=== PATIENT | female | born 1955 | race Caucasian/White ===

== ENCOUNTER 2018-02-21 20:06 | Emergency (ER) | payer MEDICARE ==
[~2018-02-21] VITALS: Ht 142.2 cm; Wt 56.7 kg
[~2018-02-21 20:06] MED LIST: LANTUS SUBQ; TRAM50TA1 PO; VIC PO
[2018-02-21 20:10] VITALS: BP 172/90
--- NOTE | 2018-02-21 20:17 | NUR ---
SENT TO LOBBY TO WAIT FOR A BED.
--- NOTE | 2018-02-21 20:41 | NUR ---
PT TAKEN TO BED 8
--- NOTE | 2018-02-21 20:45 | NUR ---
PT PRESENTED ER WITH C/O LEG PAIN X 4 WEEKS. PT HAS AN OPEN WOUND ON THE OUTER PART OF CALF. PAIN LEVEL IS 9/10 AT THIS TIME. PT HAS HX OF DM, OSTEOPOROSIS AND ANXIETY. PT IS A/O X 4; EVEN AND STEADY GAIT; VSS; PATIENT POSITIONED FOR COMFORT; HOB ELEVATED; BEDRAILS UP X2; BED DOWN. ER MD MADE AWARE OF PT STATUS.
--- NOTE | 2018-02-21 22:59 | NUR ---
Dr. Vickers evaluating patient at bedside.
[2018-02-21] MEDS ORDERED: MORPHINE SULFATE 4 MG/ML SYR IM ONE (23:10)
[2018-02-21] MEDS ORDERED: CLINDAMYCIN 600 MG/4 ML VIAL IM ONE (23:10)
[2018-02-21] MEDS ORDERED: BACITRACIN OINT 500 UNITS/GM PKT TP ONE ×2 (23:45→23:48)
[2018-02-21 23:49] VITALS: BP 172/90
--- NOTE | 2018-02-21 23:49 | NUR ---
Patient discharged with v/s stable. Written and verbal after care instructions given and explained. Patient alert, oriented and verbalized understanding of instructions. Ambulatory with steady gait. All questions addressed prior to discharge. ID band removed. Patient advised to follow up with PMD. Rx of NEURONTIN, CLINDAMYCON, BACTRIM WAS given. Patient educated on indication of medication including possible reaction and side effects. Opportunity to ask questions provided and answered.
== END 2018-02-21 23:49 | disposition home or self-care (01) ==
LOC: MED 20:06
DX: L03.116 Cellulitis of left lower limb (principal); L97.929 Non-pressure chronic ulcer of unspecified part of left lower leg with unspecified severity; E11.9 Type 2 diabetes mellitus without complications; Z88.0 Allergy status to penicillin; Z79.4 Long term (current) use of insulin; Z79.899 Other long term (current) drug therapy; Z90.49 Acquired absence of other specified parts of digestive tract
CPT/HCPCS: 82948; 96372; 99284; J2270; J3490

== ENCOUNTER 2018-02-24 15:19 | Emergency (ER) | payer MEDICARE ==
[~2018-02-24] VITALS: Ht 157.5 cm; Wt 70.3 kg
[2018-02-24 15:21] VITALS: BP 127/62
--- NOTE | 2018-02-24 15:31 | NUR ---
PT PROVIDING URINE AT THIS TIME.
--- NOTE | 2018-02-24 15:35 | NUR ---
PT. BIB SON DUE TO [place] SINCE LAST NIGHTAFTER TAKING MEDICATIONS. PT DENIES SOB, DENIES CP, DENIES N/V/D. 01/26 ITCHY ALL OVER BODY. RR EVEN AND UNLABORED. ABLE TO SPEAK IN FULL AND COMPLETE SENTENCES. URTICARIA NOTED IN BILAT ARMS AND CHEST. ER MD NOTIFIED. WILL CONTINUE TO MONITOR. VSS.
[2018-02-24] MEDS ORDERED: FAMOTIDINE 20 MG TAB PO ONE (16:05)
[2018-02-24] MEDS ORDERED: predniSONE 20 MG TAB PO ONE (16:05)
[2018-02-24] MEDS ORDERED: diphenhydrAMINE 50 MG CAP PO ONE (16:05)
[2018-02-24] MEDS ORDERED: ACETAMINOPHEN EXTRA STRENGTH 500 MG TAB PO ONE (17:00)
--- NOTE | 2018-02-24 17:04 | NUR ---
PT. RETING COMFORTABLY IN BED, RR EVEN AND UNLABORED. VSS. WILL CONTINUE TO MONITOR.
[2018-02-24 18:15] VITALS: BP 163/88
--- NOTE | 2018-02-24 18:16 | NUR ---
Patient discharged with v/s stable. Written and verbal after care instructions given and explained. Patient alert, oriented and verbalized understanding of instructions. Ambulatory with steady gait. All questions addressed prior to discharge. ID band removed. Patient advised to follow up with PMD. Rx of BENADRYL/PREDNISONE/ZYRTEC given. Patient educated on indication of medication including possible reaction and side effects. Opportunity to ask questions provided and answered.
== END 2018-02-24 18:16 | disposition home or self-care (01) ==
LOC: MED 15:19
DX: S81.802A Unspecified open wound, left lower leg, initial encounter (principal); L50.0 Allergic urticaria; R21 Rash and other nonspecific skin eruption; R51 Headache; F41.9 Anxiety disorder, unspecified; E11.9 Type 2 diabetes mellitus without complications; Z88.0 Allergy status to penicillin; Z88.2 Allergy status to sulfonamides; Z79.4 Long term (current) use of insulin; Z79.899 Other long term (current) drug therapy; X58.XXXA Exposure to other specified factors, initial encounter; Y93.89 Activity, other specified; Y92.89 Other specified places as the place of occurrence of the external cause; Y99.8 Other external cause status
CPT/HCPCS: 82948; 99284; J7512; Q0163

== ENCOUNTER 2018-12-01 12:51 | Emergency (ER) | payer BC, MEDICARE ==
[~2018-12-01] VITALS: Ht 149.9 cm; Wt 52.6 kg
[2018-12-01 13:11] VITALS: BP 161/68
--- NOTE | 2018-12-01 13:15 | NUR ---
PT SENT TO ER LOBBY TO WAIT FOR X-RAY AND AVAILABLE BED.
--- NOTE | 2018-12-01 14:01 | NUR ---
PT TAKEN TO BED 01 BY WHEELCHAIR.
--- NOTE | 2018-12-01 14:25 | NUR ---
PT BIB SON WITH C/O RIGHT FOOT FRACTURE 2 WEEKS AGO, WAS SEEN AT [facility], PT WAITING TO SEE ORTHOPEDIC PT WAS SEEN BY HER PCP, TRYING TO GET THE APPOINTMENT FOR ORTHOPEDIC, NO APPOINTMENT YET. PER PT, PAIN GETTING WORSE, SO CAME TO ER. PT HAS SWELLING ON RT ANKLE, HAS EDEMA ON THE RT LOWER LEG +1 PITTING EDEMA WITH ERYTHEMA. PT PAIN 10/10 AT THIS TIME. UNABLE TO BEAR WEINGHT. GETS ASSISTED FROM FAMILY MEMBER WITH HER ADLS. PT IS HD, HAS ASHLEY CATH ON RT UPPER CHEST. ER MD TO SEE PT. HX DM, DIALYSIS T//WED
[2018-12-01] MEDS ORDERED: traMADol 50 MG TAB PO ONE (14:40)
[2018-12-01] MEDS ORDERED: KETOROLAC 30 MG/ML VIAL IM ONE (14:40)
[2018-12-01 16:50] VITALS: BP 125/59
--- NOTE | 2018-12-01 16:50 | NUR ---
Patient discharged with v/s stable. Written and verbal after care instructions given and explained. Patient alert, oriented and verbalized understanding of instructions. Ambulatory with steady gait. All questions addressed prior to discharge. ID band removed. Patient advised to follow up with PMD. Rx of TRAMADOL HCL 50 MG given. Patient educated on indication of medication including possible reaction and side effects. Opportunity to ask questions provided and answered.
== END 2018-12-01 16:50 | disposition home or self-care (01) ==
LOC: MED 12:51
DX: S82.851A Displaced trimalleolar fracture of right lower leg, initial encounter for closed fracture (principal); E11.22 Type 2 diabetes mellitus with diabetic chronic kidney disease; N18.6 End stage renal disease; Z99.2 Dependence on renal dialysis; Z79.1 Long term (current) use of non-steroidal anti-inflammatories (NSAID); Z79.4 Long term (current) use of insulin; W18.39XA Other fall on same level, initial encounter; Y93.89 Activity, other specified; Y92.89 Other specified places as the place of occurrence of the external cause; Y99.8 Other external cause status
CPT/HCPCS: 29515; 73610; 96372; 99283; J1885